=== PATIENT | male | born 1995 | race African-American/Black ===

== ENCOUNTER 2020-11-13 20:52 | Emergency (ER) | payer SELFPAY ==
[~2020-11-13] VITALS: Ht 172.7 cm; Wt 75.3 kg
[2020-11-13 22:18] LABS: BASOPHILS % (AUTO) 1 % (0-1); EOSINOPHILS % (AUTO) 5 % (1-7); LYMPHOCYTES % (AUTO) 29 % (22-44); MD NO; MEAN CORPUSCULAR HEMOGLOBIN 31.2 pg (27.5-34.5); MEAN CORPUSCULAR HGB CONC 33.8 g/dL (33.2-36.2); MEAN PLATELET VOLUME 8.8 fL (7.4-10.4); MONOCYTES % (AUTO) 10 % (2-9); NEUTROPHILS % (AUTO) 57 % (42-75); PLATELET COUNT 219 x10^3/uL (130-400); RED BLOOD COUNT 4.68 x10^6/uL (4.38-5.82)
[2020-11-13 22:29] LABS: CALCIUM 8.7 mg/dL (8.5-10.1)
[2020-11-13 22:36] LABS: ANION GAP 4 mmol/L (5-15); CHLORIDE 108 mmol/L (98-107)
--- NOTE | 2020-11-13 22:41 | NUR ---
First contact with patient. Patient up to BR for urine sample.
--- NOTE | 2020-11-13 22:47 | NUR ---
Patient presents to ER c/o RLQ abd pain x2 days. Also c/o right upper leg pain. States it started with the leg pain then moved to his abd. Patient denies N/V/D or fever. Denies injury. Patient is in NAD. Respirations even and unlabored.
[2020-11-13] MEDS ORDERED: MORPHINE SULFATE 4 MG/ML, 1ML IVPush PRN (23:00)
--- NOTE | 2020-11-13 23:00 | NUR ---
Patient to CT. CT to start the IV.
[2020-11-13] MEDS ORDERED: MORPHINE SULFATE 4 MG/ML, 1ML ONE (23:04)
[2020-11-13 23:09] LABS: MICROSCOPIC NOT IND
[2020-11-13] MEDS ORDERED: OMNIPAQUE 350 MG/ML, 100ML BOTTLE ONE (23:10)
[2020-11-13 23:24] VITALS: BP 108/70
--- NOTE | 2020-11-14 00:16 | NUR ---
Patient sleeping in gurney. Respirations even and unlabored.
--- NOTE | 2020-11-14 00:35 | NUR ---
Discharge instructions given. All questions and concerns addressed. Patient ambulatory with a steady gait. Belongings with patient.
== END 2020-11-14 00:36 | disposition home or self-care (01) ==
LOC: ED 21:30
DX: S39.011A Strain of muscle, fascia and tendon of abdomen, initial encounter (principal); M79.651 Pain in right thigh; X58.XXXA Exposure to other specified factors, initial encounter; Y93.89 Activity, other specified; Y92.89 Other specified places as the place of occurrence of the external cause; Y99.8 Other external cause status
CPT/HCPCS: 36415; 74177; 80048; 81003; 85025; 96374; 99285; J2270; Q9967